=== PATIENT | female | born 1960 | race African-American/Black ===

== ENCOUNTER 2017-02-06 15:07 | Emergency (ER) | payer OTHER ==
[~2017-02-06] VITALS: Ht 160 cm; Wt 115.0 kg
[2017-02-06] MEDS ORDERED: FLEXERIL10 MG PO (15:34)
[2017-02-06 16:14] VITALS: BP 125/85
== END 2017-02-06 16:14 | disposition home or self-care (01) ==
LOC: EME 15:07
DX: M62.830 Muscle spasm of back (principal); V49.50XA Passenger injured in collision with unspecified motor vehicles in traffic accident, initial encounter; F32.9 Major depressive disorder, single episode, unspecified; I10 Essential (primary) hypertension; Z98.84 Bariatric surgery status; Z96.653 Presence of artificial knee joint, bilateral; F17.200 Nicotine dependence, unspecified, uncomplicated; Z88.0 Allergy status to penicillin; Z88.8 Allergy status to other drugs, medicaments and biological substances
CPT/HCPCS: 99281; 99283

== ENCOUNTER 2017-03-17 08:34 | Emergency (ER) | payer SELFPAY ==
[~2017-03-17] VITALS: Ht 160 cm; Wt 115.1 kg
[~2017-03-17 08:34] MED LIST: FLEXERIL10 MG PO
[2017-03-17 09:53] LABS: EOSINOPHIL (%) 2.3 % (0-5); EOSINOPHIL COUNT 0.1 K/uL (0-0.3); HEMATOCRIT 31.9 % (36.0-46.0); IMMATURE GRANULOCYTE (%) 0.2 % (0.0-0.7); INSTRUMENT ABS NEUTROPHIL CT 2.4 K/uL; LYMPHOCYTE COUNT 1.5 K/uL (1.0-2.8); MCH 31.2 PG (29.0-34.0); MCHC 32.3 G/DL (30.0-36.0); MCV 96.7 FL (83-99); MEAN PLAT.VOLUME 9.7 uM^3 (9.5-12.4); MONOCYTE (%) 8.8 % (3-12); MONOCYTE COUNT 0.4 K/uL (0-0.8); NEUTROPHIL (%) 53.7 % (45-76); NEUTROPHIL COUNT 2.4 K/uL (1.8-6.4); PLATELET COUNT 276 K/uL (156-360); RBC DIS.WIDTH-CV 12.9 % (11.8-14.6); WHITE BLOOD COUNT 4.4 K/uL (4.1-10.2)
[2017-03-17 10:00] LABS: CHLORIDE 108 mEq/L (99-109); POTASSIUM 4.8 mEq/L (3.7-5.4); SODIUM 141 mEq/L (136-147)
[2017-03-17 10:02] LABS: GLUCOSE 88 mg/dL (70-99)
[2017-03-17 10:04] LABS: ANION GAP 12 MEQ/L (2-14)
[2017-03-17 10:06] LABS: GFR ESTIMATE (CALCULATED) > 59 mL/min/
[2017-03-17 10:07] LABS: UREA NITROGEN (BUN) 14 mg/dL (9-23)
[2017-03-17] MEDS ORDERED: BACTRIM,SEPT1 TABLET PO (11:24)
[2017-03-17] MEDS ORDERED: INDOCIN25 MG PO (11:25)
[2017-03-17 12:03] VITALS: BP 103/71
== END 2017-03-17 12:03 | disposition home or self-care (01) ==
LOC: EME 08:34
PROVIDERS: Emergency Medicine
DX: L03.115 Cellulitis of right lower limb (principal); R60.1 Generalized edema; I10 Essential (primary) hypertension; F32.9 Major depressive disorder, single episode, unspecified; Z96.653 Presence of artificial knee joint, bilateral; Z98.84 Bariatric surgery status; Z88.0 Allergy status to penicillin; F17.200 Nicotine dependence, unspecified, uncomplicated
CPT/HCPCS: 80048; 85025; 93971; 99281; 99284

== ENCOUNTER 2017-03-22 07:44 | Emergency (ER) | payer SELFPAY ==
[~2017-03-22] VITALS: Ht 160 cm; Wt 117.4 kg
[~2017-03-22 07:44] MED LIST changes: +BACTRIM,SEPT1 TABLET PO; +INDOCIN25 MG PO
[2017-03-22] MEDS ORDERED: CYMBALTA60 MG PO (08:39)
[2017-03-22] MEDS ORDERED: AMBIEN5 MG PO (08:40)
[2017-03-22] MEDS ORDERED: LISINOPRIL10 MG PO (08:40)
[2017-03-22] MEDS ORDERED: ABILIFY15 MG PO (08:40)
[2017-03-22] MEDS ORDERED: PRAZOSIN HCL1 MG PO (08:41)
[2017-03-22] MEDS ORDERED: VITAMIN D5000 UNI1 PO (08:42)
[2017-03-22] MEDS ORDERED: MULTIVITAMIN1 EAC2 PO (08:42)
[2017-03-22 09:19] LABS: EOSINOPHIL (%) 2.4 % (0-5); EOSINOPHIL COUNT 0.1 K/uL (0-0.3); HEMATOCRIT 34.8 % (36.0-46.0); IMMATURE GRANULOCYTE (%) 0.2 % (0.0-0.7); INSTRUMENT ABS NEUTROPHIL CT 2.8 K/uL; LYMPHOCYTE COUNT 1.3 K/uL (1.0-2.8); MCHC 31.6 G/DL (30.0-36.0); MCV 94.8 FL (83-99); MONOCYTE (%) 7.9 % (3-12); MONOCYTE COUNT 0.4 K/uL (0-0.8); NEUTROPHIL (%) 60.8 % (45-76); NEUTROPHIL COUNT 2.8 K/uL (1.8-6.4); PROTHROMBIN TIME 11.4 SEC (10.2-12.9); RBC DIS.WIDTH-CV 12.8 % (11.8-14.6); RBC DIS.WIDTH-SD 44.8 % (39-53); RED BLOOD COUNT 3.67 M/uL (3.80-5.20); WHITE BLOOD COUNT 4.6 K/uL (4.1-10.2)
[2017-03-22 09:24] LABS: CHLORIDE 108 mEq/L (99-109); POTASSIUM 4.8 mEq/L (3.7-5.4); SODIUM 136 mEq/L (136-147)
[2017-03-22 09:26] LABS: GLUCOSE 90 mg/dL (70-99)
[2017-03-22 09:28] LABS: ANION GAP 10 MEQ/L (2-14)
[2017-03-22 09:30] LABS: GFR ESTIMATE (CALCULATED) > 59 mL/min/
[2017-03-22 09:31] LABS: UREA NITROGEN (BUN) 18 mg/dL (9-23)
[2017-03-22 09:33] LABS: LIPASE 15 U/L (1.0-51.0)
[2017-03-22 09:55] LABS: PLAT.SUFFICIENCY ADEQUATE; PLATELET CLUMPS PRESENT - PLATELET COUNT APPEARS ADQ.; PLATELET COUNT UNABLE TO REPORT K/uL (156-360)
[2017-03-22 13:02] VITALS: BP 102/75
== END 2017-03-22 13:05 | disposition home or self-care (01) ==
LOC: EME 07:44
PROVIDERS: Emergency Medicine
DX: M79.604 Pain in right leg (principal); M79.1 Myalgia; R60.1 Generalized edema; I10 Essential (primary) hypertension; Z96.653 Presence of artificial knee joint, bilateral; F17.200 Nicotine dependence, unspecified, uncomplicated; F32.9 Major depressive disorder, single episode, unspecified; Z98.84 Bariatric surgery status; Z88.0 Allergy status to penicillin
CPT/HCPCS: 80048; 83690; 85025; 85610; 93971; 99281; 99285